=== PATIENT | male | born 1980 | race African-American/Black ===

== ENCOUNTER 2017-04-22 01:09 | Emergency (ER) | payer OTHER ==
[~2017-04-22] VITALS: Ht 185.4 cm; Wt 84.1 kg
[2017-04-22 02:27] LABS: BASOPHILS % (AUTO) 0.2 % (0.0-2.0); EOSINOPHILS % (AUTO) 0.1 % (1.0-6.0); HEMATOCRIT 38.8 % (41-53); LYMPHOCYTES # (AUTO) 0.9 K/uL (1.0-4.8); LYMPHOCYTES % (AUTO) 9.3 % (22.0-44.0); MEAN CORPUSCULAR HEMOGLOBIN 28.5 pg (26.0-34.0); MEAN CORPUSCULAR HGB CONC 33.5 G/dL (31.0-37.0); MEAN CORPUSCULAR VOLUME 85 fL (80-100); MONOCYTES # (AUTO) 0.7 K/uL (0.1-1.0); NEUTROPHILS # (AUTO) 8.3 K/uL (1.8-7.7); NEUTROPHILS % (AUTO) 83.4 % (40.0-70.0); PLATELET COUNT (AUTO) 226 K/uL (150-450); RED BLOOD CELL COUNT(AUTO) 4.55 MIL/uL (4.50-5.90); RED CELL DISTRIBUTION WIDTH 13.5 % (11.5-14.5)
[2017-04-22] MEDS ORDERED: PERTUSS(ACELL),DIPH,TET VAC/PF 0.5 ML VIAL IM ONE (02:30)
[2017-04-22] MEDS: HALOPERIDOL LACTATE 5 MG/ML VIAL IM ONE ×2 (02:36→02:44)
[2017-04-22] MEDS: LORazepam 2 MG/ML VIAL IM ONE ×2 (02:37→02:43)
[2017-04-22 02:38] LABS: ANION GAP 12 mmol/L (8-16); CALCIUM, TOTAL 8.9 mg/dL (8.8-10.5); CARBON DIOXIDE 25 mmol/L (22-29); CHLORIDE 103 mmol/L (98-107); CREATININE 1.35 mg/dL (0.60-1.30); GLOMERULAR FILTR. RATE CALC > 60 mL/min (>60); POTASSIUM 3.6 mmol/L (3.5-5.1); SODIUM SERUM 140 mmol/L (136-145); UREA NITROGEN, BLOOD 20 mg/dL (7-18)
[2017-04-22 02:43] LABS: ALANINE AMINOTRANSFERASE 46 U/L (12-78); ALBUMIN 3.8 g/dL (3.4-5.0); ASPARTATE AMINOTRANSFERASE 62 U/L (15-37); BILIRUBIN,TOTAL 0.9 mg/dL (0.1-1.0); TOTAL PROTEIN, SERUM 7.5 g/dL (6.4-8.2)
[2017-04-22 06:41] VITALS: BP 120/76
== END 2017-04-22 06:49 | disposition home or self-care (01) ==
LOC: EMS 01:11
DX: S01.112A Laceration without foreign body of left eyelid and periocular area, initial encounter (principal); F12.959 Cannabis use, unspecified with psychotic disorder, unspecified; F17.210 Nicotine dependence, cigarettes, uncomplicated; X58.XXXA Exposure to other specified factors, initial encounter; Y93.02 Activity, running; Y92.481 Parking lot as the place of occurrence of the external cause; Y99.8 Other external cause status
CPT/HCPCS: 12013; 36415; 80053; 85025; 90471; 90715; 99291; 99406; G0480; J1630; J2060; 99284

== ENCOUNTER 2019-12-22 01:39 | Inpatient (IN) | payer MEDICAID, OTHER ==
[~2019-12-22] VITALS: Ht 190.5 cm; Wt 91.3 kg
[2019-12-22] MEDS ORDERED: LORazepam 2 MG TABLET PO PRN (04:30)
[2019-12-22] MEDS ORDERED: ZOLPIDEM TARTRATE 10 MG TABLET PO PRN (04:30)
[2019-12-22] MEDS ORDERED: QUEtiapine FUMARATE 100 MG TABLET PO PRN (04:30)
[2019-12-22 09:18] VITALS: BP 139/78
[2019-12-22 09:30] VITALS: BP 139/78
[2019-12-22 16:21] VITALS: BP 144/78
[2019-12-22] MEDS ORDERED: MAG HYDROX/AL HYDROX/SIMETH ES 30 ML SUSPENSION UDCUP PO PRN (17:15)
[2019-12-22] MEDS ORDERED: LOPERAMIDE HCL 2 MG CAPSULE PO PRN (17:15)
[2019-12-22] MEDS ORDERED: ACETAMINOPHEN 325 MG TABLET PO PRN (17:15)
[2019-12-22] MEDS ORDERED: GuaiFENesin/D-METHORPHAN [SUGAR-FREE] 200-20MG/10 ML SYRUP UDCUP PO PRN (17:15)
[2019-12-22] MEDS ORDERED: HydrOXYzine PAMOATE 50 MG CAPSULE PO PRN (17:15)
[2019-12-22] MEDS ORDERED: TUBERCULIN, PURIFIED PROTEIN DERIVATIVE 5 TU/0.1 ML SYRINGE ID ONE (17:15)
[2019-12-22] MEDS ORDERED: PROMETHAZINE HCL 25 MG TABLET PO PRN (17:15)
[2019-12-22] MEDS ORDERED: MAGNESIUM HYDROXIDE SUSPENSION 30 ML UDCUP PO PRN (17:15)
[2019-12-22] MEDS: DIVALPROEX SODIUM 500 MG ER TABLET PO SCH (20:30)
[2019-12-22] MEDS ORDERED: OLANZapine 5 MG RAPDIS TABLET PO SCH (21:00)
[2019-12-23] MEDS: MULTIVITAMINS WITH MINERALS, THERAPEUTIC TABLET PO SCH (09:00)
[2019-12-23] MEDS: NALTREXONE HCL 50 MG TABLET PO SCH (09:00)
[2019-12-23] MEDS: THIAMINE HCL 100 MG TABLET PO SCH ×2 (09:00→16:18)
[2019-12-23] MEDS: FOLIC ACID 1 MG TABLET PO SCH (09:00)
[2019-12-23 20:46] VITALS: BP 105/65
[2019-12-23] MEDS: DIVALPROEX SODIUM 500 MG ER TABLET PO SCH (20:51)
[2019-12-23] MEDS: OLANZapine 10 MG RAPDIS TABLET PO SCH (20:52)
[2019-12-24 08:11] VITALS: BP 150/75
[2019-12-24] MEDS: FOLIC ACID 1 MG TABLET PO SCH (09:36)
[2019-12-24] MEDS: THIAMINE HCL 100 MG TABLET PO SCH ×2 (09:36→16:20)
[2019-12-24] MEDS: MULTIVITAMINS WITH MINERALS, THERAPEUTIC TABLET PO SCH (09:36)
[2019-12-24] MEDS: NALTREXONE HCL 50 MG TABLET PO SCH (09:36)
[2019-12-24 17:07] VITALS: BP 123/88
[2019-12-24] MEDS: OLANZapine 10 MG RAPDIS TABLET PO SCH (20:17)
[2019-12-24] MEDS: DIVALPROEX SODIUM 500 MG ER TABLET PO SCH (20:17)
[2019-12-25 07:44] LABS: BASOPHILS % (AUTO) 0.2 % (0.0-2.0); EOSINOPHILS % (AUTO) 1.3 % (1.0-6.0); HEMATOCRIT 46.4 % (41-53); LYMPHOCYTES # (AUTO) 1.2 K/uL (1.0-4.8); LYMPHOCYTES % (AUTO) 23.6 % (22.0-44.0); MEAN CORPUSCULAR HEMOGLOBIN 27.6 pg (26.0-34.0); MEAN CORPUSCULAR HGB CONC 32.4 G/dL (31.0-37.0); MEAN CORPUSCULAR VOLUME 85 fL (80-100); MONOCYTES # (AUTO) 0.4 K/uL (0.1-1.0); MONOCYTES % (AUTO) 7.2 % (2.0-9.0); NEUTROPHILS # (AUTO) 3.4 K/uL (1.8-7.7); NEUTROPHILS % (AUTO) 67.7 % (40.0-70.0); PLATELET COUNT (AUTO) 188 K/uL (150-450); RED BLOOD CELL COUNT(AUTO) 5.46 MIL/uL (4.50-5.90); RED CELL DISTRIBUTION WIDTH 13.4 % (11.5-14.5)
[2019-12-25] MEDS: NALTREXONE HCL 50 MG TABLET PO SCH (08:15)
[2019-12-25] MEDS: FOLIC ACID 1 MG TABLET PO SCH (08:15)
[2019-12-25] MEDS: MULTIVITAMINS WITH MINERALS, THERAPEUTIC TABLET PO SCH (08:15)
[2019-12-25] MEDS: THIAMINE HCL 100 MG TABLET PO SCH ×2 (08:15→16:09)
[2019-12-25 08:19] LABS: ALANINE AMINOTRANSFERASE 38 U/L (12-78); ALBUMIN 3.3 g/dL (3.4-5.0); ALKALINE PHOSPHATASE 36 U/L (46-116); ANION GAP 5 mmol/L (8-16); BILIRUBIN,TOTAL 0.3 mg/dL (0.1-1.0); CALCIUM, TOTAL 8.8 mg/dL (8.8-10.5); CARBON DIOXIDE 32 mmol/L (22-29); CHLORIDE 105 mmol/L (98-107); CHOL/HDL RATIO 1.7 (4.2-7.3); CHOLESTEROL 72 mg/dL (131-200); CREATININE 1.06 mg/dL (0.60-1.30); GLOMERULAR FILTR. RATE CALC > 60 mL/min (>60); GLUCOSE,RANDOM 101 mg/dL (70-110); HDL CHOLESTEROL 42 mg/dL (40-60); LDL CHOL (CALC.) 23 mg/dL (0-130); POTASSIUM 3.8 mmol/L (3.5-5.1); SODIUM SERUM 142 mmol/L (136-145); THYROID STIMULATING HORMONE 0.71 uIU/mL (0.36-3.74); TOTAL PROTEIN, SERUM 7.2 g/dL (6.4-8.2); TRIGLYCERIDES 35 mg/dL (15-150); UREA NITROGEN, BLOOD 13 mg/dL (7-18)
[2019-12-25 08:22] LABS: HEMOGLOBIN A1C 5.3 % (3.8-5.6)
[2019-12-25 08:33] LABS: ASPARTATE AMINOTRANSFERASE 31 U/L (15-37)
[2019-12-25 08:41] VITALS: BP 125/53
[2019-12-25 16:24] VITALS: BP 130/82
[2019-12-25] MEDS: DIVALPROEX SODIUM 500 MG ER TABLET PO SCH (20:20)
[2019-12-25] MEDS: OLANZapine 10 MG RAPDIS TABLET PO SCH (20:20)
[2019-12-26 08:23] VITALS: BP 126/71
[2019-12-26] MEDS: NALTREXONE HCL 50 MG TABLET PO SCH ×2 (08:36→09:00)
[2019-12-26] MEDS: THIAMINE HCL 100 MG TABLET PO SCH ×3 (08:38→16:40)
[2019-12-26] MEDS: MULTIVITAMINS WITH MINERALS, THERAPEUTIC TABLET PO SCH ×2 (08:38→09:00)
[2019-12-26] MEDS: FLUoxetine HCL 20 MG CAPSULE PO SCH ×2 (08:38→09:00)
[2019-12-26] MEDS: FOLIC ACID 1 MG TABLET PO SCH ×2 (08:38→09:00)
[2019-12-26 18:08] VITALS: BP 132/75
[2019-12-26] MEDS: DIVALPROEX SODIUM 500 MG ER TABLET PO SCH (20:35)
[2019-12-26] MEDS: OLANZapine 10 MG RAPDIS TABLET PO SCH (20:35)
[2019-12-27 08:00] VITALS: BP 96/63
[2019-12-27] MEDS: FOLIC ACID 1 MG TABLET PO SCH (10:49)
[2019-12-27] MEDS: NALTREXONE HCL 50 MG TABLET PO SCH (10:49)
[2019-12-27] MEDS: MULTIVITAMINS WITH MINERALS, THERAPEUTIC TABLET PO SCH (10:49)
[2019-12-27] MEDS: THIAMINE HCL 100 MG TABLET PO SCH ×2 (10:49→16:34)
[2019-12-27] MEDS: FLUoxetine HCL 20 MG CAPSULE PO SCH (10:50)
[2019-12-27 16:34] VITALS: BP 119/78
[2019-12-27] MEDS: OLANZapine 10 MG RAPDIS TABLET PO SCH (20:29)
[2019-12-27] MEDS: DIVALPROEX SODIUM 500 MG ER TABLET PO SCH (20:50)
[2019-12-28] MEDS: NALTREXONE HCL 50 MG TABLET PO SCH (08:35)
[2019-12-28] MEDS: FOLIC ACID 1 MG TABLET PO SCH (08:35)
[2019-12-28] MEDS: THIAMINE HCL 100 MG TABLET PO SCH (08:35)
[2019-12-28] MEDS: FLUoxetine HCL 20 MG CAPSULE PO SCH (08:35)
[2019-12-28] MEDS: MULTIVITAMINS WITH MINERALS, THERAPEUTIC TABLET PO SCH (08:35)
[2019-12-28] MEDS ORDERED: DIVA500T52 PO (11:17)
[2019-12-28] MEDS ORDERED: FLUO-191 PO (11:17)
[2019-12-28] MEDS ORDERED: NALT50TA PO (11:17)
[2019-12-28] MEDS ORDERED: OLAN10TA22 PO (11:17)
== END 2019-12-28 14:43 | disposition home or self-care (01) | DRG 885 ==
LOC: EMS 01:39 → 3EC 04:30
PROVIDERS: ADMIT Psychiatry & Neurology Psychiatry; ATTEND Psychiatry & Neurology Psychiatry
DX: F25.1 Schizoaffective disorder, depressive type (principal); N17.9 Acute kidney failure, unspecified; R45.851 Suicidal ideations; F25.0 Schizoaffective disorder, bipolar type; D64.9 Anemia, unspecified; F17.210 Nicotine dependence, cigarettes, uncomplicated; Z59.0 Homelessness; Z91.19 Patient's noncompliance with other medical treatment and regimen; F12.90 Cannabis use, unspecified, uncomplicated; F41.9 Anxiety disorder, unspecified; R03.0 Elevated blood-pressure reading, without diagnosis of hypertension
CPT/HCPCS: 80074; 83036; 84439; 84443; 86592